=== PATIENT | female | born 1955 | race Caucasian/White ===

== ENCOUNTER 2018-01-04 22:43 | Emergency (ER) | payer OTHER, SELFPAY ==
[2018-01-05] MEDS: MORPHINE 10 MG/ML 1ML VIAL (J2270) IM (03:30)
[2018-01-05] MEDS: OXYCODONE/APAP 5MG/325MG(BULK FOR ED) 1 TABLET PO (03:30)
[2018-01-05] MEDS: CYCLOBENZAPRINE 10 MG TAB PO (03:30)
[2018-01-05] MEDS: predniSONE 20 MG TAB PO (03:30)
== END 2018-01-05 04:14 | disposition home or self-care (01) ==
LOC: M ED 22:43
DX: M54.32 Sciatica, left side (principal); Z85.42 Personal history of malignant neoplasm of other parts of uterus; Z79.899 Other long term (current) drug therapy; Z91.041 Radiographic dye allergy status; Z88.6 Allergy status to analgesic agent; Z88.8 Allergy status to other drugs, medicaments and biological substances
CPT/HCPCS: J2270